=== PATIENT | male | born 1965 | race Caucasian/White ===

== ENCOUNTER 2016-10-06 17:41 | Inpatient (IN) | payer OTHER ==
--- NOTE | ~2016-10-06 | HP ---
Unit #: [id number] #: [id number] Patient: MOO LUU [id number] [place] [address] [facility]. [place], [place] [address] [id number] MR#: [id number] NAME: MOO LUU. ROOM: [facility] Age: 51 Sex: M Admission Date: 10/06/2016 : 1965 Attending Physician: Sal Cortez M.D. Primary Care Physician: No Primary Care Physician HISTORY AND PHYSICAL HISTORY OF PRESENT ILLNESS This is a 51-year-old white male who is known to Dr. Mckeon. He has a history of non-St elevation myocardial infarction in 02/2015, when he underwent PCI with drug-eluting stents to the proximal and distal right coronary artery and mid LAD. He has risk factors for ischemic heart disease including hypertension, hyperlipidemia and nicotine abuse. The patient presented to the emergency room with the complaint of chest pain and palpitations. For the past 2.5 weeks he states that he could not breathe. He reported paroxysmal nocturnal dyspnea and orthopnea were better sitting upright. He had a nonproductive frequent cough. No fever or chills. He noted leg edema. He has also noted several episodes of palpitations that have worsened over the past few days. He ran out of his medicines 2.5 weeks ago, except for furosemide, which he took in the last few days. He continued to smoke and drink. His ejection fraction in 2014 was 10% per echocardiogram and he was wearing a life vest at one point. He also had nonsustained ventricular tachycardia and was on amiodarone, for which he did not have medication to take. In the emergency room he was noted to have several runs of monomorphic nonsustained ventricular tachycardia up to 13 beats. He also had a run of AIVR. His troponin was nondiagnostic for myocardial infarction where it peaked at 0.05. His electrocardiogram shows inferior ischemic changes. Chest pain is substernal and radiates into his left neck, associated with shortness of breath and occasional diaphoresis. Chest pain mostly occurs with any activities. He is currently chest pain free. PAST MEDICAL HISTORY 1. Two-dimensional echocardiogram 02/20/2015 shows an ejection fraction of 10%, with severe global hypokinesis of the left ventricle. Left ventricle moderately dilated. Left and right atrium mildly dilated. Mild to moderate mitral regurgitation and severe tricuspid regurgitation. 2. Non-ST elevation myocardial infarction, status post cardiac catheterization 02/21/2015, which revealed main normal. Circumflex artery normal. Left anterior descending artery immediately distal to the first diagonal branch with 80%-85% stenosis mid vessel. Diagonal branches and septal perforators normal. Right coronary artery large caliber dominant vessel with 99% stenosis of the junction of the proximal third and distal two-thirds. Mid right coronary artery 40%. The distal right coronary artery with long segment stenosis of 75%-80% before the origin of the PDA and PLV branches. PDA and PLV branches normal. Ejection fraction of 15%. 3. Status post PCI with drug-eluting stent to the proximal right coronary artery and direct stenting to the distal right coronary artery 02/21/2015. Unit #: [id number] #: [id number] Patient: MOO LUU 4. Direct stenting to the mid LAD with drug-eluting stent 02/25/2015. 5. Ischemic cardiomyopathy with an ejection fraction of 10%. 6. Nonsustained ventricular tachycardia. 7. Chronic systolic heart failure. 8. Hypertension. 9. Hyperlipidemia. 10. Nicotine abuse. 11. Alcohol abuse. 12. Chronic obstructive pulmonary disease. PAST SURGICAL HISTORY 1. 1. Back surgery times three. 2. Renal stone removal. 3. Right biceps surgery. SOCIAL HISTORY The patient is and unemployed. He continues to smoke 1-3/4 packs of cigarettes a day. He drinks four to six beers a day. Denies illicit drug use. FAMILY HISTORY Positive for premature coronary artery disease in his mother. ALLERGIES Morphine. HOME MEDICATIONS 1. Furosemide 40 mg b.i.d. 2. Metoprolol tartrate 50 mg b.i.d. 3. Amiodarone 200 mg daily. Of note, the patient was only taking furosemide. REVIEW OF SYSTEMS CONSTITUTIONAL: Positive for weakness and weight gain. No weight loss. No fever or chills. HEENT: No headache. No vision changes. No difficulty swallowing. Negative for dizziness. CARDIOVASCULAR: Has chest pain and palpitations as described in history of present illness. Positive for paroxysmal nocturnal dyspnea and orthopnea. No syncope or near syncope. RESPIRATORY: Positive for dyspnea at rest as well as exertion. Has a nonproductive cough. No hemoptysis. GASTROINTESTINAL: No abdominal pain, nausea, vomiting. He reports increasing abdominal girth. EXTREMITIES: Negative for lower extremity edema. PHYSICAL EXAMINATION GENERAL: This is a 51-year-old mildly obese white male who is in no acute respiratory distress. VITALS: Blood pressure 144/95, heart rate 100, temperature 98.7, BMI 29. NECK: Trachea midline. No thyromegaly or lymphadenopathy, with positive jugular venous distension. LUNGS: Diminished breath sounds with crackles both lung bases. HEART: S1 and S2. Heart sounds are normal. No murmurs, rubs or clicks. Regular rate and rhythm. ABDOMEN: Slightly distended with bowel sounds present. Nontender. EXTREMITIES: With 1+ leg edema. Unit #: [id number] #: [id number] Patient: MOO LUU SKIN: Warm and dry. NEUROLOGIC: He is awake, alert and oriented. There is no focal weakness. DIAGNOSTIC STUDIES IMAGING: Chest x-ray shows cardiac silhouette enlargement, but lungs clear. LABORATORY: Glucose 132, BUN 18, creatinine 0.9, sodium 135, potassium 4.0. CK total 60, MB 2.4, MB index 4.0, troponin less than 0.05 to 0.05 times 2. Lactic acid 1.5. TSH 6.47. White count 8.3, hemoglobin 14.1, hematocrit 43.3, platelet count 150. Urine drug screen positive for amphetamines and marijuana. CARDIOVASCULAR: Electrocardiogram shows sinus tachycardia with a rate of 99 beats per minute, with left atrial enlargement. T wave inversion in the inferolateral leads noted for ischemia. There is poor R wave progression. QTC prolongation 500 msec. ASSESSMENT 1. Exertional angina. 2. Acute on chronic systolic heart failure. 3. ETOH cardiomyopathy. 4. AIVR. 5. History of non-ST elevation myocardial infarction, status post PCI stent to the proximal and distal right coronary artery, mid LAD in 2015. 6. Uncontrolled hypertension. 7. Alcohol abuse. 8. Nicotine abuse. 9. Chronic obstructive pulmonary disease. 10. Elevated TSH. 11. Nonsustained ventricular tachycardia. PLAN 1. Will diurese the patient with IV diuretics. Will place on Aldactone and fluid restriction. 2. Amiodarone intravenously will be discontinued. Will start the patient on rhythm control with beta edmar. Add ERWIN inhibitor for afterload reduction. 3. Continue ERWIN inhibitor. 4. Will start on nitrates. 5. Recommend cardiac catheterization to evaluate the patient's coronary anatomy. This has been discussed with the patient, including risks and benefits of bleeding, myocardial infarction, CVA, renovascular complications and . He is agreeable. Will schedule for a.m. 6. Recheck two-dimensional echocardiogram to evaluate left ventricular systolic function. 7. TSH is low. Will check free T4 and free T3 for hypothyroidism. Thank you for allowing us to assist with this patient's care. Dictated by Robert Schroeder A.P.R.N. for Miguel A Clayton/josué TD: 10/07/2016 14:33 Unit #: [id number] #: [id number] Patient: MOO LUU JOB #: [id number] CC: [facility] HISTORY AND PHYSICAL Page 1 of 1 X Robert Schroeder APRN X HISTORY AND PHYSICAL
--- NOTE | ~2016-10-06 | CR72 ---
[facility] A Service of [facility] & [facility] RADIOLOGY TEXT RESULTS PATIENT: MOO LUU LOCATION: [place] [id number] : [birth year] UNIT #: [id number] AGE: [address]: Sal Cortez MD SEX: M ORDER DR: [id number] [facility] [address] [facility]. [place], [place] [address] [id number] MR#: [id number] Acc #: [id number] NAME: MOO LUU. : 1965 SEX: M STUDY DATE/TIME: 10/06/2016 18:41 UNIT: [facility] ROOM: [facility] STUDY DESCRIPTION: CR Chest Single View Portable Attending Physician: Sal Cortez M.D. Ordering Physician: Kayley Weaver M.D. MEDICAL IMAGING REPORT This report is preliminary unless electronic signature is present EXAM Portable chest HISTORY Chest pain, shortness of air for 2.5 weeks. FINDINGS Mild cardiac enlargement. Normal pulmonary vascularity. No infiltrates or effusions. IMPRESSION No acute findings. Cardiac enlargement is similar to 02/20/2015. Lungs are clear. Dictated by... Anshul Stevens M.D. THIS IS AN ELECTRONICALLY VERIFIED REPORT Anshul Stevens M.D. at 10/07/2016 2:00 PM DFL/pcl TD: 10/06/2016 22:33 JOB #: [id number] MEDICAL IMAGING REPORT Page 1 of 1 COPY
--- NOTE | ~2016-10-06 | EKG ---
PATIENT: MOO LUU UNIT #: [id number] Ventricular Rate: 95 BPM Atrial Rate: 95 BPM P-R Interval: 146 ms QRS Duration: 112 ms Q-T Interval: 406 ms QTC Calculation(Bezet): 510 ms P [place]: 62 degrees Calculated R [place]: 71 degrees Calculated T [place]: -54 degrees Diagnosis Line: Sinus rhythm with occasional Premature ventricular Diagnosis Line: complexes and Premature atrial complexes Diagnosis Line: Low voltage QRS Diagnosis Line: T wave abnormality, consider inferior ischemia Diagnosis Line: Prolonged QT Diagnosis Line: Abnormal ECG Diagnosis Line: When compared with ECG of 07-OCT-2016 06:16, Diagnosis Line: (unconfirmed) Diagnosis Line: Premature ventricular complexes are now Present Diagnosis Line: Premature atrial complexes are now Present Diagnosis Line: Confirmed by GIAN CUMMINGS MD ([id number]) on Diagnosis Line: 10/10/2016 9:52:43 AM INTERPRETING : ABRAN
--- NOTE | ~2016-10-06 | EKG ---
PATIENT: MOO LUU UNIT #: [id number] Ventricular Rate: 103 BPM Atrial Rate: 103 BPM P-R Interval: 124 ms QRS Duration: 108 ms Q-T Interval: 386 ms QTC Calculation(Bezet): 505 ms P [place]: 61 degrees Calculated R [employer] [place]: 49 degrees Calculated T [place]: -78 degrees Diagnosis Line: Sinus tachycardia with frequent and consecutive Diagnosis Line: Premature ventricular complexes Diagnosis Line: Possible Left atrial enlargement Diagnosis Line: ST and T wave abnormality, consider inferolateral Diagnosis Line: ischemia Diagnosis Line: Prolonged QT Diagnosis Line: Abnormal ECG Diagnosis Line: When compared with ECG of 26-FEB-2015 06:13, Diagnosis Line: Premature ventricular complexes are now Present Diagnosis Line: Vent. rate has increased BY 36 BPM Diagnosis Line: T wave inversion now evident in Inferior leads Diagnosis Line: T wave inversion no longer evident in Anterior Diagnosis Line: leads Diagnosis Line: QT has lengthened Diagnosis Line: Confirmed by GIAN CUMMINGS MD ([id number]) on Diagnosis Line: 10/10/2016 7:48:11 AM INTERPRETING : ABRAN
--- NOTE | ~2016-10-06 | EKG ---
PATIENT: MOO LUU UNIT #: [id number] Ventricular Rate: 101 BPM Atrial Rate: 101 BPM P-R Interval: 126 ms QRS Duration: 116 ms Q-T Interval: 386 ms QTC Calculation(Bezet): 500 ms P [place]: 60 degrees Calculated R [place]: 58 degrees Calculated T [place]: -55 degrees Diagnosis Line: Sinus tachycardia Diagnosis Line: Possible Left atrial enlargement Diagnosis Line: T wave abnormality, consider inferior ischemia Diagnosis Line: Abnormal ECG Diagnosis Line: When compared with ECG of 06-OCT-2016 18:29, Diagnosis Line: (unconfirmed) Diagnosis Line: Fusion complexes are no longer Present Diagnosis Line: T wave inversion no longer evident in Lateral Diagnosis Line: leads Diagnosis Line: Confirmed by GERTRUDIS GARCIA MD ([id number]) on Diagnosis Line: 10/08/2016 7:58:34 AM INTERPRETING MD: RADHA CARROLL
--- NOTE | ~2016-10-06 | EKG ---
PATIENT: MOO LUU UNIT #: [id number] Ventricular Rate: 65 BPM Atrial Rate: 65 BPM P-R Interval: 140 ms QRS Duration: 114 ms Q-T Interval: 472 ms QTC Calculation(Bezet): 490 ms P [place]: 49 degrees Calculated R [place]: 41 degrees Calculated T [place]: -89 degrees Diagnosis Line: Normal sinus rhythm Diagnosis Line: Possible Left atrial enlargement Diagnosis Line: Non-specific intra-ventricular conduction delay Diagnosis Line: Nonspecific T wave abnormality Diagnosis Line: Prolonged QT Diagnosis Line: Abnormal ECG Diagnosis Line: When compared with ECG of 07-OCT-2016 08:48, Diagnosis Line: (unconfirmed) Diagnosis Line: Premature ventricular complexes are no longer Diagnosis Line: Present Diagnosis Line: Premature atrial complexes are no longer Present Diagnosis Line: Inverted T waves have replaced nonspecific T wave Diagnosis Line: abnormality in Lateral leads Diagnosis Line: Confirmed by GIAN CUMMINGS MD ([id number]) on Diagnosis Line: 10/10/2016 9:53:17 AM INTERPRETING NELSON OSULLIVAN
--- NOTE | ~2016-10-06 | EKG ---
PATIENT: MOO LUU UNIT #: [id number] Ventricular Rate: 99 BPM Atrial Rate: 99 BPM P-R Interval: 122 ms QRS Duration: 102 ms Q-T Interval: 390 ms QTC Calculation(Bezet): 500 ms P [place]: 65 degrees Calculated R [place]: 63 degrees Calculated T [place]: -70 degrees Diagnosis Line: Sinus rhythm with Fusion complexes Diagnosis Line: Possible Left atrial enlargement Diagnosis Line: Left ventricular hypertrophy Diagnosis Line: Prolonged QT Diagnosis Line: Abnormal ECG Diagnosis Line: When compared with ECG of 26-FEB-2015 06:13, Diagnosis Line: Fusion complexes are now Present Diagnosis Line: T wave inversion now evident in Inferior leads Diagnosis Line: T wave inversion less evident in Anterior leads Diagnosis Line: QT has lengthened Diagnosis Line: Confirmed by GIAN CUMMINGS MD ([id number]) on Diagnosis Line: 10/10/2016 7:48:34 AM INTERPRETING : ABRAN
--- NOTE | ~2016-10-06 | DS ---
Unit #: [id number] #: [id number] Patient: MOO LUU [id number] [address] [id number] I MR#: [id number] NAME: MOO LUU. ROOM: 553 Age: 51 Sex: M Admission Date: 10/06/2016 : 1965 Discharge Date: 10/09/2016 Attending Physician: Sal Cortez M.D. Primary Care Physician: Primary Care Physician No DISCHARGE SUMMARY DISCHARGE DIAGNOSES 1. Exertional angina. 2. Status post cardiac catheterization on 10/08/[address] Mckeon at [facility] that reveals the following results. a. Left ventricle dilated with an ejection fraction of 10%. b. Left main normal. c. Left anterior descending artery with no significant stenosis. Stent patent. d. Circumflex artery normal. e. Right coronary artery with no significant stenosis, the proximal and ostial stents widely patent. 3. 2D echocardiogram on 10/07/2016 showed an ejection fraction of 20% to 30% with left atrium mildly dilated. Severe global hypokinesis of the left ventricle. Moderately enlarged right atrium. Right ventricular systolic pressure 34 mmHg consistent with mild pulmonary hypertension. Uaowkjcz-gb-tffrsw mitral regurgitation and vwdvrrib-am-gmdolh tricuspid regurgitation. 4. Uncontrolled hypertension. 5. Hyperlipidemia. 6. EtOH cardiomyopathy. 7. Noncompliance. 8. Chronic systolic heart failure. 9. Nicotine abuse. 10. Alcohol abuse. 11. Chronic obstructive pulmonary disease. 12. Accelerated idioventricular rhythm, resolved. 13. Nonsustained ventricular tachycardia. DISCHARGE MEDICATIONS Imdur 30 mg daily, amiodarone 200 mg daily, atorvastatin 80 mg q.h.s., metoprolol tartrate 50 mg b.i.d., furosemide 40 mg b.i.d., Zestril 20 mg daily q.h.s., aspirin 81 mg daily, spironolactone 25 mg daily, nitroglycerin 0.4 mg sublingual q.5 minutes x3 p.r.n. chest pain. HOSPITAL COURSE This is a 51-year-old white male, who presented to the emergency room with a complaint of chest pain that occurred on exertion. He had paroxysmal nocturnal dyspnea, orthopnea, and leg edema. He was noted to be in acute on chronic systolic heart failure where he had a known ejection fraction in 2015 of 10%. In 2015, he had coronary artery disease and underwent stent placement to the right coronary artery and distal right coronary artery with staged angioplasty to the LAD. He has been noncompliant with his followup. He was treated with IV diuretics. Placed on fluid and Unit #: [id number] #: [id number] Patient: MOO LUU sodium restriction. CHF education was given. Troponin was trend where he was ruled out for an acute myocardial infarction. Because of noncompliance and exertional angina, cardiac catheterization was recommended. After his heart failure improved, he underwent cardiac catheterization, which found his stents to the LAD and two stents to his right coronary artery to be patent. The circumflex artery was normal. Please see details of the full cardiac catheterization report. Repeat EKG shows a slight improvement of his ejection fraction to 20% to 25%. There was hnlovnfx-uh-ryifmp mitral and tricuspid regurgitation. The patient was restarted on beta edmar, ERWIN inhibitor, statin and aspirin. Amiodarone was withheld but the patient had nonsustained ventricular tachycardia during his stay. He will be started on amiodarone at home to alleviate arrhythmias. He was also continued on spironolactone. He was admitted to the intensive care unit, but there were no telemetry beds on the day of his admission. His right radial site is healing well without hematoma or bruising. We transferred the patient to telemetry and ambulate. Oxygen was supplemented throughout his stay and will wean oxygen as appropriate. Thyroid functions were obtained this admission, where his TSH level was 6.47, but free T4 and free T3 were normal. His blood pressure was uncontrolled on admission, but better controlled after restarting on his medication. If he is stable this afternoon, he will be discharged today. PHYSICAL EXAMINATION VITAL SIGNS: Blood pressure 121/74, heart rate 61, and temperature 97.4. CHEST: Clear to auscultation. HEART: S1, S2. Regular rate and rhythm. ABDOMEN: Soft with bowel sounds are present. EXTREMITIES: Without leg edema. Right radial without hematoma or bruising. There is 4+ pulse. Normal sensation in his fingers. DIAGNOSTIC STUDIES LABORATORY RESULTS: Glucose 125, BUN 23, creatinine 1.3, sodium 137, potassium 4.0. Cholesterol 122, triglycerides 81, LDL 71, HDL 35. TSH 6.47, free T4 0.72, free T3 2.9. White count 6.8, hemoglobin 14.1, hematocrit 42.6, and platelet count 159. CARDIOVASCULAR STUDIES: EKG shows normal sinus rhythm, rate of 65 beats per minute with T-wave inversion in the inferior and lateral leads. QTc 490 msec. DISCHARGE INSTRUCTIONS 1. The patient will be discharged home today. 2. Follow up with Dr. Mckeon on 01/03/2017 at 2:00 p.m. 3. The patient would be discharged home with prescriptions for all of his medications given he ran out of his prescriptions. This includes beta edmar, statin, aspirin, ERWIN inhibitor, and diuretics. He will also be going home on Imdur and p.r.n. nitroglycerin for recurrent chest pain. 4. The patient has been encouraged to be compliant in his fluid restriction and sodium restriction at home. CHF education has been reiterated. 5. The patient also need to be compliant in his follow ups. This has been discussed with the patient and he is agreeable. 6. Consider AICD at a later date if the patient remains compliant. Dictated by... Robert Schroeder A.P.R.N. for S. Mehdi Bledsoe M.D. Unit #: [id number] #: [id number] Patient: BELLMOO Telma MONKP/erwin TD: 10/11/2016 23:46 JOB #: [id number] CC: Piter Mckeon M.D. DISCHARGE SUMMARY Page 1 of 1 X Robert Schroeder APRN X DISCHARGE SUMMARY
[~2016-10-06 17:41] MED LIST: ALDACTONE25 MG PO; AMIODARONE PO; ASPIRIN81 MG PO; BACTRIM DS TABL1 TAB PO; CLONIDINE PO; COREG PO; EFFIENT10 MG PO; IBUPROFEN PO; KEFLEX PO; LASIX PO; LISINOPRIL PO; LISINOPRIL20 MG PO; LO-DOSE ASPIRIN81 M1 PO; LOPRESSOR PO; NICOTINE TRANSD14 MG EXT; NITROGLYGERIN0.4 MG SL; NO MEDICATIONS; ORUDIS75 M1 PO; PEN-VEE K PO; PLAVIX PO; TOPROL XL PO; VICODIN PO; ZESTRIL10 M1 PO
[2016-10-06 18:39] LABS: POC - CKMB 1.3 ng/mL (0.0-7.9); POC - TROPONIN <0.05 ng/mL (<=0.05)
[2016-10-06 18:43] LABS: BASOPHIL% 0.7 % (0-2.5); EOSINOPHIL# 0.1 X10e3 (0-0.7); EOSINOPHIL% 1.1 % (0.0-7.0); HEMATOCRIT 44.6 % (38.0-50.0); HEMOGLOBIN 14.8 gm/dL (13.0-16.0); LYMPHOCYTE# 1.3 X10e3 (1.0-3.5); LYMPHOCYTE% 17.3 % (17.0-45.0); MEAN CELL VOLUME 96.9 FL (83-96); MEAN CORPUSCULAR HEMOGLOBIN 32.1 PG (28-34); MEAN CORPUSCULAR HGB CONC 33.1 g/dL (30-36); MEAN PLATELET VOLUME 8.3 FL (6.5-11.5); MONOCYTE# 0.5 X10e3 (0-1.0); MONOCYTE% 7.2 % (3.0-12.0); NEUTROPHIL# 5.4 X10e3 (1.5-7.1); NEUTROPHIL% 73.7 % (40-75); PLATELET COUNT 153 X10e3 (140-420); RED CELL DISTRIBUTION WIDTH 13.9 % (11.0-15.5); WHITE BLOOD COUNT 7.3 X10e3 (4.0-10.5)
[2016-10-06 18:46] LABS: DIFF IND NO
[2016-10-06 18:58] LABS: ALBUMIN SERUM 3.9 g/dL (3.5-5.0); BILIRUBIN, DIRECT 0.2 mg/dL (0.0-0.2); BILIRUBIN,INDIRECT 1.3 mg/dL (0.0-0.9); BILIRUBIN,TOTAL 1.5 mg/dL (0.2-2.0); BUN/CREATININE RATIO 14.61; CALCIUM SERUM 9.2 mg/dL (8.4-10.2); CREATININE SERUM 1.3 mg/dL (0.6-1.4); GLOM FILT RATE Estimated 64.1 mL/min (>60); POTASSIUM 4.2 mmol/L (3.5-5.1); PROTEIN TOTAL SERUM 7.2 g/dL (6.0-8.3)
[2016-10-06 19:32] LABS: POC - CKMB 1.5 ng/mL (0.0-7.9); POC - TROPONIN <0.05 ng/mL (<=0.05)
[2016-10-06 20:14] LABS: AMPHETAMINE POS (NEG); BARBITURATES NEG (NEG); BENZODIAZEPINES NEG (NEG); COCAINE NEG (NEG); MARIJUANA POS (NEG); OPIATES NEG (NEG); TRICYCLIC ANTIDEPRESSANTS NEG (NEG); U METHADONE NEG (NEG)
[2016-10-06] MEDS ORDERED: FUROSEMIDE40 MG PO (23:42)
[2016-10-06] MEDS ORDERED: METOPROLOL TAR25 MG PO (23:42)
[2016-10-06] MEDS ORDERED: AMIODARONE HCL200 MG PO (23:43)
[2016-10-07 07:18] LABS: BASOPHIL% 0.5 % (0-2.5); EOSINOPHIL# 0.1 X10e3 (0-0.7); EOSINOPHIL% 1.2 % (0.0-7.0); HEMATOCRIT 43.3 % (38.0-50.0); HEMOGLOBIN 14.1 gm/dL (13.0-16.0); LYMPHOCYTE# 1.6 X10e3 (1.0-3.5); LYMPHOCYTE% 18.6 % (17.0-45.0); MEAN CELL VOLUME 96.9 FL (83-96); MEAN CORPUSCULAR HEMOGLOBIN 31.6 PG (28-34); MEAN CORPUSCULAR HGB CONC 32.6 g/dL (30-36); MEAN PLATELET VOLUME 8.4 FL (6.5-11.5); MONOCYTE# 0.8 X10e3 (0-1.0); MONOCYTE% 9.8 % (3.0-12.0); NEUTROPHIL# 5.8 X10e3 (1.5-7.1); NEUTROPHIL% 69.9 % (40-75); PLATELET COUNT 150 X10e3 (140-420); RED BLOOD COUNT 4.47 X10e (3.90-5.60); WHITE BLOOD COUNT 8.3 X10e3 (4.0-10.5)
[2016-10-07 07:23] LABS: DIFF IND NO
[2016-10-07 08:21] LABS: CALCIUM SERUM 8.7 mg/dL (8.4-10.2); CREATININE SERUM 0.9 mg/dL (0.6-1.4); GLOM FILT RATE Estimated 99.9 mL/min (>60)
[2016-10-07 10:02] LABS: MB 2.4 ng/ml
[2016-10-08 05:16] LABS: BASOPHIL% 0.6 % (0-2.5); EOSINOPHIL# 0.1 X10e3 (0-0.7); EOSINOPHIL% 1.4 % (0.0-7.0); HEMATOCRIT 42.6 % (38.0-50.0); HEMOGLOBIN 14.1 gm/dL (13.0-16.0); LYMPHOCYTE# 1.6 X10e3 (1.0-3.5); LYMPHOCYTE% 22.9 % (17.0-45.0); MEAN CELL VOLUME 96.3 FL (83-96); MEAN CORPUSCULAR HGB CONC 33.2 g/dL (30-36); MEAN PLATELET VOLUME 8.3 FL (6.5-11.5); MONOCYTE# 0.8 X10e3 (0-1.0); MONOCYTE% 11.4 % (3.0-12.0); NEUTROPHIL# 4.3 X10e3 (1.5-7.1); NEUTROPHIL% 63.7 % (40-75); PLATELET COUNT 159 X10e3 (140-420); RED BLOOD COUNT 4.42 X10e (3.90-5.60); RED CELL DISTRIBUTION WIDTH 14.1 % (11.0-15.5); WHITE BLOOD COUNT 6.8 X10e3 (4.0-10.5)
[2016-10-08 05:22] LABS: INR 1.2; PARTIAL THROMBOPLASTIN TIME 34.8 SECONDS (23.5-31.3); PROTHROMBIN TIME (PATIENT) 13.4 SECONDS (10.0-11.7)
[2016-10-08 05:25] LABS: DIFF IND NO
[2016-10-08 05:53] LABS: CK TOTAL 36 IU/L (36-174)
[2016-10-08 06:03] LABS: BUN/CREATININE RATIO 16.42; CALCIUM SERUM 9.1 mg/dL (8.4-10.2); CREATININE SERUM 1.4 mg/dL (0.6-1.4); GLOM FILT RATE Estimated 58.6 mL/min (>60)
[2016-10-08 06:05] LABS: CHOLESTEROL 122 mg/dL (0-200); HDL CHOLESTEROL 35 mg/dL (29-75); LDL CHOLESTEROL 71 mg/dL (-130); LDL/HDL RATIO 2 RATIO (0-4); TRIGLYCERIDES 81 mg/dL (10-160)
[2016-10-08 06:36] LABS: FREE T3 2.9 pg/mL (2.5-3.9)
[2016-10-08 06:37] LABS: FREE THYROXIN (T4) 0.72 ng/dL (0.58-1.64)
[2016-10-09 06:11] LABS: CREATININE SERUM 1.3 mg/dL (0.6-1.4); GLOM FILT RATE Estimated 64.1 mL/min (>60)
[2016-10-09] MEDS ORDERED: ASPIRIN81 M2 PO (17:05)
[2016-10-09] MEDS ORDERED: IMDUR-ER30 M3 PO (17:06)
[2016-10-09] MEDS ORDERED: PRINIVIL20 M1 PO (17:06)
[2016-10-09] MEDS ORDERED: ALDACTONE25 MG PO (17:07)
[2016-10-09] MEDS ORDERED: LIPITOR80 MG PO (17:08)
[2016-10-09] MEDS ORDERED: NITROGLYGERIN0.4 MG SL (17:09)
== END 2016-10-09 18:03 | disposition home or self-care (01) | DRG 287 ==
LOC: CED 17:41 → CICCU3 19:45 → CEDOF 19:45 → CED 20:24 → CEDOF 20:24 → CICCU3 22:31 → CEDOF 22:31 → CICCU3 22:31 → C5B 10-09 10:21
PROVIDERS: Emergency Medicine; Internal Medicine Cardiovascular Disease; Nurse Practitioner
PROC: B246YZZ Ultrasonography of Right and Left Heart using Other Contrast (ICD-10-PCS; principal; 2016-10-07)
PROC: 4A023N7 Measurement of Cardiac Sampling and Pressure, Left Heart, Percutaneous Approach (ICD-10-PCS; 2016-10-08)
PROC: B211YZZ Fluoroscopy of Multiple Coronary Arteries using Other Contrast (ICD-10-PCS; 2016-10-08)
PROC: B215YZZ Fluoroscopy of Left Heart using Other Contrast (ICD-10-PCS; 2016-10-08)
DX: I11.0 Hypertensive heart disease with heart failure (principal); I42.6 Alcoholic cardiomyopathy; I27.2 Other secondary pulmonary hypertension; I47.1 Supraventricular tachycardia; I50.23 Acute on chronic systolic (congestive) heart failure; E78.5 Hyperlipidemia, unspecified; F17.210 Nicotine dependence, cigarettes, uncomplicated; F10.10 Alcohol abuse, uncomplicated; J44.9 Chronic obstructive pulmonary disease, unspecified; Z95.5 Presence of coronary angioplasty implant and graft; Z91.19 Patient's noncompliance with other medical treatment and regimen; I25.2 Old myocardial infarction; I08.1 Rheumatic disorders of both mitral and tricuspid valves; I25.118 Atherosclerotic heart disease of native coronary artery with other forms of angina pectoris
CPT/HCPCS: 71010; 80048; 80061; 80076; 80307; 82550; 82553; 82565; 83036; 83605; 83735; 84439; 84443; 84481; 84484; 85025; 85610; 85730; 87040; 93005; 93306; 94761; 96374; 96375; 99291; C1769; C1887; C1894; C9113; G0480; J0282; J0360; J1644; J1650; J1940; J2250; J3010